=== PATIENT | female | born 1970 | race Two or more races ===

== ENCOUNTER 2025-01-04 17:49 | Inpatient (IN) | payer OTHER ==
[~2025-01-04] VITALS: Ht 151.1 cm; Wt 59.4 kg
[2025-01-04] MEDS: HYDROcodone-ACET 5/325MG TAB PO ONE (19:30)
--- NOTE | 2025-01-04 20:21 | DVH ---
CLINICAL INDICATION: left ankle pain TECHNIQUE: 3 radiographic views of the left ankle were obtained. Comparison: None FINDINGS/IMPRESSION: Bony structures are intact and normal alignment. There are no radiopaque foreign bodies.
--- NOTE | 2025-01-04 20:23 | DVH ---
CLINICAL INDICATION: left knee pain TECHNIQUE: 3 radiographic views of the left knee were obtained. Comparison: None FINDINGS/IMPRESSION: There is a displaced fracture of the left tibial plateau from the spinous processes to the medial jacob rface of the proximal left tibia. Probable joint effusion is present.
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
[2025-01-04 22:22] LABS: Hematocrit 29.9 % (36.0-46.0); Hemoglobin 9.0 g/dL (12.2-16.2); Mean Corpuscular Hemoglobin 18.8 pg (28.0-32.0); Mean Corpuscular Volume 62.7 fL (80.0-100.0); Nucleated Red Blood Cells % 0.0 %
[2025-01-04 22:34] LABS: Potassium 4.1 mmol/L (3.5-5.1); Sodium 140 mmol/L (136-145)
[2025-01-04 22:36] LABS: Anion Gap 7 (5-15); Calcium 8.9 mg/dL (8.7-10.4); Carbon Dioxide 23 mmol/L (20-31)
[2025-01-04 22:37] LABS: INR 0.96 (0.9-1.15); Partial Thromboplastin Time 20.3 SEC (24.5-34.5); Prothrombin Time 10.2 sec (9.3-11.8)
[2025-01-04 22:41] LABS: BUN/Creatinine Ratio 15.5 (10.0-20.0); Blood Urea Nitrogen 16 mg/dL (9-23)
[2025-01-04 22:51] LABS: Chloride 110 mmol/L (98-107); Glucose 218 mg/dL (74-106)
[2025-01-04 22:59] LABS: Anisocytosis Moderate
[2025-01-04] MEDS: ONDANSETRON ODT 4 MG TAB PO ONE (23:09)
[2025-01-04] MEDS: MORPHINE SULFATE INJ 2 MG/ml SYRG IV ONE (23:10)
--- NOTE | 2025-01-04 23:12 | DVH ---
CLINICAL HISTORY: PRE-OP TECHNIQUE: Single view of the chest was obtained. COMPARISON: XR CHEST 1 VIEW on DOS: 07/12/24, CT ANGIO CHEST on DOS: 09/20/22, XR CHEST 2 VIEWS on DOS: 09/20/22 FINDINGS: The heart size is mildly enlarged with pulmonary vascular congestion. No dense consolidation. IMPRESSION: Pulmonary vascular congestion
--- NOTE | 2025-01-04 23:22 | DVH ---
EXAM: CT CT L KNEE WO CONTRAST HISTORY: LEFT KNEE PAIN COMPARISON: XY L KNEE 3V XRAY on DOS: 01/04/25 TECHNIQUE: Noncontrast axial CT images of the left knee were performed. Sagittal and coronal reformat myra images were obtained. This CT exam was performed using one or more of the following dose reductio n techniques: Automated exposure control, adjustment of the mA and/or kv according to patient size, o r the use of iterative reconstruction techniques. Radiation Dose Information: CTDI volume is 7.75 mGy . Dose-length product is 3.87 mGy*cm FINDINGS: Comminuted acute displaced fractures through the lateral and medial aspect of the tibial plateau with intra-articular fracture fragment. There is involvement of the posterior tibial spine. There is a la rge knee joint lipohemarthrosis. There is subcutaneous stranding and swelling about the knee. IMPRESSION: 1. Comminuted acute displaced tibial plateau fracture.
[2025-01-05] VITALS (8 sets, daily range): BP systolic 147–202; BP diastolic 54–85; PULSE 59–91; RESP 16–20; TEMP 98.2–98.8; O2SAT 95–100
[2025-01-05] MEDS ORDERED: ENOXAPARIN SOD 40 MG/0.4 ML SYRINGE SC SCH
[2025-01-05] MEDS ORDERED: ACETAMINOPHEN 325 MG TAB PO PRN
[2025-01-05] MEDS ORDERED: ONDANSETRON HCL 4 MG/2 ML VIAL IV PRN
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
[2025-01-05] MEDS: HYDROcodone-ACET 10/325MG TAB PO ONE (01:15)
[2025-01-05 01:43] LABS: Alanine Aminotransferase 24.0 U/L (7-40); Albumin 3.6 g/dL (3.2-4.8); Alkaline Phosphatase 117.0 U/L (46-116); Bilirubin, Direct 0.3 mg/dL (<0.3); Bilirubin, Total 0.9 mg/dL (0.2-1.0); Total Protein 6.1 g/dL (5.7-8.2)
[2025-01-05 01:45] LABS: Iron 9.0 ug/dL (50-170)
[2025-01-05 01:48] LABS: Total Iron Binding Capacity 431.0 ug/dL (250-425)
[2025-01-05] MEDS: HYDROcodone-ACET 5/325MG TAB PO PRN (02:13)
[2025-01-05] MEDS ORDERED: LISI40TA16 PO (02:55)
[2025-01-05] MEDS: KETOROLAC TROMETH 30 MG/ML 1ML VIAL IV ONE (02:58)
[2025-01-05] MEDS: HYDROmorphone HCL 2 MG/ML VL/or syr IV ONE (03:30)
[2025-01-05] MEDS: FUROSEMIDE 40 MG/4 ML VIAL IV ONE (03:34)
[2025-01-05 03:57] LABS: Hematocrit 25.9 % (36.0-46.0); Hemoglobin 8.1 g/dL (12.2-16.2); Mean Corpuscular Hemoglobin 19.1 pg (28.0-32.0); Mean Corpuscular Volume 61.3 fL (80.0-100.0); Nucleated Red Blood Cells % 0.0 %
[2025-01-05 04:16] LABS: Alanine Aminotransferase 22 U/L (7-40); Albumin 3.8 g/dL (3.2-4.8); Anion Gap 9 (5-15); BUN/Creatinine Ratio 22.1 (10.0-20.0); Blood Urea Nitrogen 23 mg/dL (9-23); Carbon Dioxide 24 mmol/L (20-31); Chloride 107 mmol/L (98-107); Potassium 3.6 mmol/L (3.5-5.1); Sodium 140 mmol/L (136-145); Total Protein 6.2 g/dL (5.7-8.2)
[2025-01-05 04:17] LABS: Bilirubin, Total 0.9 mg/dL (0.2-1.0)
[2025-01-05 04:30] LABS: Alkaline Phosphatase 127 U/L (46-116); Calcium 8.6 mg/dL (8.7-10.4); Glucose 168 mg/dL (74-106)
[2025-01-05] MEDS: LISINOPRIL 20 MG TAB PO ONE ×2 (04:53→17:33)
[2025-01-05] MEDS: FUROSEMIDE 20 MG/2 ML VIAL IV SCH (05:10)
[2025-01-05] MEDS: hydrALAZINE HCL 20 MG/ML VL IV ONE (05:39)
[2025-01-05] MEDS: ACCU-CHEK COMFORT CURVE STRIP VI SCH ×2 (05:44→11:55)
[2025-01-05] MEDS: InsuLIN REG 1unit/0.01ml Soln (100units/ml) SC SCH ×2 (05:44→11:30)
[2025-01-05] MEDS: LISINOPRIL 20 MG TAB PO SCH (05:50)
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
[2025-01-05] MEDS: PANTOPRAZOLE 40 MG/10 ML VIAL INJ IV SCH (09:39)
[2025-01-05] MEDS: HYDROmorphone HCL 2 MG/ML VL/or syr IV PRN (09:40)
--- NOTE | 2025-01-05 09:50 | DVH ---
CLINICAL INDICATION: Right knee pain TECHNIQUE: XY R KNEE 3V XRAY Comparison: None FINDINGS/IMPRESSION: : There is a mildly displaced fracture of the proximal tibia with fracture lines involving the metaphys is and appears to extend into the lateral tibial plateau. This could be characterized by CT if clinic ally indicated. There is a lipohemarthrosis of the right knee joint.
[2025-01-05] MEDS ORDERED: DEXTROSE (50%) 50ML SYRG IV PRN ×2 (10:00)
[2025-01-05] MEDS ORDERED: LISINOPRIL 20 MG TAB PO SCH (10:00)
[2025-01-05 10:48] LABS: Triglycerides 104.0 mg/dL (< 150)
[2025-01-05 10:50] LABS: Cholesterol 126.0 mg/dL (< 200)
[2025-01-05 11:15] LABS: HDL Cholesterol 73.0 mg/dL (40-59)
[2025-01-05] MEDS: IRON SUCROSE COMPLEX 110 ML IV SCH (11:55)
[2025-01-05] MEDS: hydrALAZINE HCL 20 MG/ML VL IV PRN (13:03)
[2025-01-05 13:37] LABS: Lipase 36.0 U/L (12-53)
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
[2025-01-05 18:27] LABS: Cannabinoid Screen, Urine Neg (NEGATIVE)
[2025-01-05 18:35] LABS: Amphetamine Screen, Urine Pos (NEGATIVE); Barbiturate Scree,Urine Neg (NEGATIVE); Benzodiazephine Screen, Urine Neg (NEGATIVE); Cocaine Screen, Urine Neg (NEGATIVE); Opiate Scree,Urine Pos (NEGATIVE); Phencyclidine Screen, Urine Neg (NEGATIVE)
[2025-01-05 18:38] LABS: Urine Protein, UAD Negative (Negative)
[2025-01-06] VITALS (8 sets, daily range): BP systolic 106–189; BP diastolic 57–98; PULSE 78–98; RESP 16–20; TEMP 97.6–99.3; O2SAT 76–99
--- NOTE | 2025-01-06 07:03 | ECG ---
[facility] Test Date: 2025-01-05 Test Time: 15:19:17 Pat Name: YOAN KING Department: Room: 0270T Gender: F Senior Engineering Associate: : 1970 Requested By: GENARO CASTRO Order Number: [id number] Reading MD: Alex Anderson Measurements Intervals [place] Rate: 77 P: 60 DE: 146 QRS: -33 QRSD: 92 T: 125 QT: 422 QTc: 477 Interpretive Statements Normal sinus rhythm Possible Left atrial enlargement Left axis deviation Left ventricular hypertrophy with repolarization abnormality Electronically Signed On 01-10-2025 15:26:30 PDT by Alex Anderson Please click the below link to view image of tracing.
[2025-01-06 08:02] LABS: Chloride 104 mmol/L (98-107); Sodium 139 mmol/L (136-145)
[2025-01-06 08:03] LABS: Anion Gap 9 (5-15); Carbon Dioxide 26 mmol/L (20-31); Hemoglobin 8.6 g/dL (12.2-16.2); Nucleated Red Blood Cells % 0.1 %
[2025-01-06 08:07] LABS: Hematocrit 27.8 % (36.0-46.0); Mean Corpuscular Hemoglobin 19.2 pg (28.0-32.0); Mean Corpuscular Volume 62.1 fL (80.0-100.0)
[2025-01-06 08:08] LABS: BUN/Creatinine Ratio 19.1 (10.0-20.0); Blood Urea Nitrogen 18 mg/dL (9-23); Glucose 94 mg/dL (74-106)
[2025-01-06 08:10] LABS: Calcium 8.5 mg/dL (8.7-10.4); Potassium 3.4 mmol/L (3.5-5.1)
[2025-01-06] MEDS ORDERED: POTASSIUM CHL 20MEQ/100ML 100 ML IV ONE (09:30)
[2025-01-06] MEDS: EMPAGLIFLOZIN 10 MG TAB PO SCH (10:49)
[2025-01-06] MEDS: POTASSIUM CHL 20 Meq TABLET PO ONE (11:01)
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
[2025-01-06] MEDS ORDERED: IRON SUCROSE COMPLEX 110 ML IV SCH (12:00)
--- NOTE | 2025-01-06 14:14 | DVH ---
CLINICAL INDICATION: pain TECHNIQUE: 2 radiographic views of the right knee were obtained. Comparison: XY R KNEE 3V XRAY on DOS: 01/05/25, CT CT L KNEE WO CONTRAST on DOS: 01/04/25, XY L KNEE 3V XRAY on DOS: 01/04/25 FINDINGS/IMPRESSION: There is no evidence of acute fracture or dislocation. The visualized joint space is well maintained. The alignment is anatomical. There is no radiopaque foreign body.
[2025-01-07] VITALS (7 sets, daily range): BP systolic 148–193; BP diastolic 69–97; PULSE 80–93; RESP 16–20; TEMP 97.5–99.1; O2SAT 93–99
[2025-01-07] MEDS: POTASSIUM CHLORIDE 20 MEQ, LIDOCAINE 1% (LOCAL ANESTH.) 2 ML in SODIUM CHL 0.9% 100 ML IV ONE (00:27)
[2025-01-07] MEDS: hydrALAZINE HCL 20 MG/ML VL IV ONE (02:17)
--- NOTE | 2025-01-07 10:03 | DVHPN2 ---
Consult Progress Note Date Seen: Jan 07, 2025 Subjective Review of Systems: CVS:Normal, RESPIRATORY:Normal, NEURO:Normal Objective vital signs Vital Sign Date Time Temp Pulse Resp B/P (MAP) Pulse Ox O2 Delivery O2 Flow Rate FiO2 01/07/25 06:47 66 20 196/78 01/07/25 05:00 99.0 95 99.0 01/06/25 20:00 Room Air* 0 21 Total Intake and Output 01/06/25 01/06/25 01/07/25 15:00 23:00 07:00 Intake Total 800 ml 1125 ml Balance 800 ml 1125 ml medications Current Medications Medications Dose Ordered Sig/Donovan Route Start Time Stop Time Status Last Admin Dose Admin Acetaminophen/ Hydrocodone Bitart 1 tab Q4HP PRN PO 01/05/25 00:00 01/07/25 02:30 1 TAB Ondansetron HCl 4 mg Q4HP PRN IV 01/05/25 00:00 Acetaminophen 650 mg Q6HP PRN PO 01/05/25 00:00 Hydromorphone HCl 0.25 mg Q4HPRN PRN IV 01/05/25 00:00 01/07/25 06:17 0.25 MG Furosemide 20 mg BIDD IV 01/05/25 06:00 01/07/25 05:56 20 MG Iron Sucrose 110 ml @ 110 mls/hr DAILY@1200 IV 01/05/25 12:00 01/09/25 12:59 01/06/25 12:53 110 MLS/HR Pantoprazole Sodium 40 mg DAILY IV 01/05/25 10:00 01/06/25 10:49 40 MG Lisinopril 40 mg DAILY PO 01/05/25 05:30 01/06/25 10:49 40 MG Hydralazine HCl 10 mg Q6HP PRN IV 01/05/25 05:30 01/06/25 21:35 10 MG Diagnostic Test (Pha) 1 strip ACHS 01/05/25 11:30 01/07/25 07:07 1 STRIP Insulin Human Regular ACHS SC 01/05/25 11:30 01/07/25 06:32 4 UNITS Dextrose 50 ml UD PRN IV 01/05/25 10:00 Iron Sucrose 110 ml @ 110 mls/hr DAILY@1200 IV 01/06/25 12:00 01/10/25 12:59 UNV Empaglifozin 10 mg DAILY PO 01/06/25 10:00 01/06/25 10:49 10 MG Chlorthalidone 25 mg DAILY@BREAKFAST PO 01/08/25 08:00 Examination: LUNGS:Normal, CVS:Normal, NEURO:Normal laboratory and microbiology Laboratory Tests 01/06/25 12:03 01/06/25 06:08 Test 01/06/25 06:08 Range/Units Serum Glucose 94 74-106 mg/dL Problem List/Assessment/Plan Problem List/Assessment/Plan Preprocedural cardiovascular examination Acute comminuted displaced tibial plateau fracture De Nathanael decompensated HFpEF, NYHA Class II Lmr-diqujqu-fcmyzlsez diabetes mellitus Hypertensive urgency Iron deficiency anemia Methamphetamine/cannabinoid/alcohol/tobacco dependence Plan/Recommendation (Dr. Anderson) Revised cardiac risk index (Trae criteria): Class I at 1.1% risk of , NE or cardiac arrest. Patient has no underlying history of coronary artery disease and has an optimal functional capacity. Per Cardiology standpoint, the patient is at an acceptable-risk for moderate-risk surgery. Preliminary transthoracic echocardiogram revealed an optimal LV function (dictated report pending at this time). Consider initiation of beta-sheridan post surgical intervention. In the meantime, continue aggressive blood pressure control with other agents. There is no further cardiac work-up indicated at this time. Signing off at this time. Thank you for allowing us to care for this patient. This medical document was created using an electronic medical record system with voice recognition software and computerized dictation system. Although this document has been carefully reviewed, there might still be some phonetic and typographical errors. Occasional wrong-word or ``sound-alike substitutions may have occurred due to the inherent limitations of voice recognition software. These areas are purely typographical due to imperfections of the software programs and do not reflect any compromise in the patient's medical care. Please read the chart carefully and recognize, using context, where these substitutions have occurred. Plan discussed with: Patient, Other Date of Service: Jan 07, 2025 Billing Provider: ANDREW DIEGO Cardiology Common Codes: [id number] INP/OBS CARE(Mod) ANDREW DIEGO Jan 07, 2025 10:03
[2025-01-07] MEDS: CHLORTHALIDONE 25 MG TAB PO ONE (10:36)
--- NOTE | 2025-01-07 10:41 | DVHSR ---
APPROVED REPORT EXAM: Two-dimensional and M-mode echocardiogram with Doppler and color Doppler. Blood Pressure: 189/86 mmHg INDICATION Cardiomegaly RISK FACTORS Height: 4'11", Weight: 130 DIMENSIONS LVDd4.8 (3.8-5.7cm)LA (2D)4.9 (1.9-4.0cm)Aortic Root2.9 (2.0-3.7cm) LVDs3.0 (2.5-4.0cm)LA (MM) (1.9-4.0cm)Aortic Cusp Exc1.7 (1.5-2.0cm) EF (%) 67.0 (55-70%)Rt. Atrium3.2 (1.9-4.0cm)Asc. Aorta cm IVSd1.8 (0.7-1.1cm)RV (D)3.5 (1.8-2.4cm) PWd1.4 (0.7-1.1cm) Mitral Valve MitralMitral Stenosis E wave0.89m/sMV Mean GR.mmHg A wave1.30m/sMV Peak GR.mmHg E/A ratio0.72D MVAcm2 DECEL [id number] 1/2 Timems Aortic Valve Aortic ValveAortic Stenosis V11.48m/Ricardo Mean GR.10mmHg V22.01m/Ricardo Peak GR.16mmHg LVOT Diameter1.9 (1.8-2.4cm)Doppler AVA2.09cm2 Pulmonic Valve V21.48m/s Other Information Quality : Technically LimitedRhythm : Technically limited study due to body habitus. Conclusion Sinus rhythm. Concentric LVH with left atrial enlargement. Mild mitral annular calcification. The aortic tricuspid and pulmonic or structurally normal. Left ventricular function is preserved at 55-60% with normal RV function. Dopplers unremarkable. No pericardial effusion masses or vegetations.
[2025-01-07 11:23] LABS: Chloride 104 mmol/L (98-107); Sodium 139 mmol/L (136-145)
[2025-01-07 11:24] LABS: Anion Gap 7 (5-15); Calcium 8.8 mg/dL (8.7-10.4); Carbon Dioxide 28 mmol/L (20-31)
[2025-01-07 11:25] LABS: Potassium 3.1 mmol/L (3.5-5.1)
[2025-01-07 11:29] LABS: BUN/Creatinine Ratio 13.6 (10.0-20.0); Blood Urea Nitrogen 14 mg/dL (9-23); Glucose 90 mg/dL (74-106)
[2025-01-07 11:30] LABS: Magnesium 2.0 mg/dL (1.6-2.6)
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
[2025-01-07] MEDS: POTASSIUM EFFERVESENT TAB 25 MEQ PO ONE (14:43)
[2025-01-08 01:00] VITALS: BP 140/72; PULSE 89; RESP 16; TEMP 97.4; O2SAT 93
[2025-01-08 05:00] VITALS: BP 138/69; PULSE 84; RESP 16; TEMP 97.5; O2SAT 93
[2025-01-08 08:31] VITALS: BP 149/62; PULSE 82; RESP 18; TEMP 98.8; O2SAT 93
[2025-01-08] MEDS: CHLORTHALIDONE 25 MG TAB PO SCH (09:34)
[2025-01-08 10:50] VITALS: BP 149/62; PULSE 82; RESP 18; TEMP 98.8; O2SAT 93
[2025-01-08 13:00] VITALS: BP 166/83; PULSE 79; RESP 20; TEMP 98.4; O2SAT 97
[2025-01-08 14:40] VITALS: BP 166/83; PULSE 79; RESP 20
[2025-01-08 16:18] LABS: Potassium 3.9 mmol/L (3.5-5.1)
[2025-01-08 16:19] LABS: Anion Gap 9 (5-15); Carbon Dioxide 28 mmol/L (20-31)
[2025-01-08 16:20] LABS: Calcium 8.9 mg/dL (8.7-10.4); Chloride 95 mmol/L (98-107); Sodium 132 mmol/L (136-145)
[2025-01-08 16:25] LABS: BUN/Creatinine Ratio 10.2 (10.0-20.0); Blood Urea Nitrogen 14 mg/dL (9-23)
[2025-01-08 16:26] LABS: Glucose 106 mg/dL (74-106)
== END 2025-01-08 16:17 | disposition short-term general hospital (02) | DRG 562 ==
LOC: ER 17:51 → OVERFLOW 23:58 → TELE-WESTW 01-05 → WEST WING 01-05 18:44 → TELE-WESTW 01-07 00:07
PROVIDERS: ADMIT Internal Medicine Geriatric Medicine; ATTEND Internal Medicine Geriatric Medicine
DX: S82.142A Displaced bicondylar fracture of left tibia, initial encounter for closed fracture (principal); I50.31 Acute diastolic (congestive) heart failure; K92.1 Melena; I16.0 Hypertensive urgency; D50.9 Iron deficiency anemia, unspecified; E11.9 Type 2 diabetes mellitus without complications; F17.210 Nicotine dependence, cigarettes, uncomplicated; I10 Essential (primary) hypertension; S93.402A Sprain of unspecified ligament of left ankle, initial encounter; W19.XXXA Unspecified fall, initial encounter; I11.0 Hypertensive heart disease with heart failure; F19.10 Other psychoactive substance abuse, uncomplicated; F15.90 Other stimulant use, unspecified, uncomplicated; Z79.84 Long term (current) use of oral hypoglycemic drugs; Z90.710 Acquired absence of both cervix and uterus; Z98.0 Intestinal bypass and anastomosis status; Y93.89 Activity, other specified; Y92.89 Other specified places as the place of occurrence of the external cause; Y99.8 Other external cause status
CPT/HCPCS: 29505; 36415; 71045; 73560; 73562; 73610; 73700; 80048; 80053; 80061; 80076; 80307; 80320; 81001; 82306; 82607; 82728; 82746; 82962; 83036; 83540; 83550; 83690; 83735; 83880; 84132; 84443; 84484; 85025; 85610; 85730; 86141; 86850; 86900; 86901; 93005; 93306; G0378; J1756; J1815; J1885; J2003; J2470; Q0162

== ENCOUNTER 2025-02-12 12:38 | Emergency (ER) | payer OTHER ==
[~2025-02-12] VITALS: Ht 149.9 cm; Wt 58.1 kg
[~2025-02-12 12:38] MED LIST: LISI40TA16 PO
--- NOTE | 2025-02-12 15:09 | ED.PDOC ---
Musculoskeletal HPI Comments This is a 54 year-old female who presents to the ED via EMS with a chief complaint of L lower extremity pain and swelling for X2 days. Patient reports fracturing her knee and having open reduction internal fixation surgery done, X7 screws in place with a plate. Patient reports some drainage from the surgical site with pain. Patient has no further complaints or modifying factors at this time. Chief Complaint: Lower Extremity Time Seen by MD: 14:25 Primary Care Provider: UNKNOWN Reviewed Notes: Medications, Allergies Allergies: Coded Allergies: NO KNOWN ALLERGIES (Unverified , 01/04/25) Home Meds Reported Medications Lisinopril (Lisinopril) 40 Mg Tab, 40 MG PO, TAB 01/05/25 Information Source: Patient Mode of Arrival: Wheelchair Location: Left Extremity Location: Leg Severity: Moderate Pain: Moderate Onset of Symptoms: After Trauma Associated signs and symptoms: Leg pain Past Medical History PAST MEDICAL HISTORY: DM, HTN Surgical History: Appendectomy, Cholecystectomy, Hysterectomy PHYSICIAN PRACTICE CONSULTANT History: No Pertinent PHYSICIAN PRACTICE CONSULTANT History Family History Family History: Unknown Social History Smoker: Cigarettes, Less Than 1 Pack/Day Alcohol: Denies ETOH Use Drugs: Marijuana Lives In: Home Constitutional: denies: chills, diaphoresis, fatigue, fever, malaise, sweats, weakness, others EENTM: denies: blurred vision, double vision, ear bleeding, ear discharge, ear drainage, ear pain, ear ringing, eye pain, eye redness, hearing loss, mouth pain, mouth swelling, nasal discharge, nose bleeding, nose congestion, nose pain, photophobia, tearing, throat pain, throat swelling, voice changes, others Respiratory: denies: cough, hemoptysis, orthopnea, SOB at rest, shortness of breath, SOB with excertion, stridor, wheezing, others Cardiovascular: denies: chest pain, dizzy spells, diaphoresis, Dyspnea on exertion, edema, irregular heart beat, left arm pain, lightheadedness, palpitations, PND, syncope, others Gastrointestinal: denies: abdomen distended, abdominal pain, blood streaked bowels, constipated, diarrhea, dysphagia, difficulty swallowing, hematemesis, melena, nausea, poor appetite, poor fluid intake, rectal bleeding, rectal pain, vomiting, others Genitourinary: denies: abnormal vagina bleeding, burning, dyspareunia, dysuria, flank pain, frequency, hematuria, incontinence, pain, , vagina discharge, urgency, others Neurological: denies: dizziness, fainting, headache, left sided numbness, left sided weakness, numbness, paresthesia, pre-existing deficit, right sided numbness, right sided weakness, seizure, speech problems, tingling, tremors, weakness, others Musculoskeletal: reports: joint pain, joint swelling; denies: back pain, gout, muscle pain, muscle stiffness, neck pain, others Integumetry: denies: bruises, change in color, change in hair/nails, dryness, laceration, lesions, lumps, rash, wounds, others Allergic/Immunocompromised: denies: Difficulty Healing, Frequent Infections, Hives, Itching, others Hematologic/Lymphatic: denies: anemia, blood clots, easy bleeding, easy bruising, swollen glands, others Endocrine: denies: excessive hunger, excessive sweating, excessive thirst, excessive urination, flushing, intolerance to cold, intolerance to heat, unexplained weight gain, unexplained weight loss, others Psychiatric: denies: anxiety, bipolar disorder, depression, hopeless, panic disorder, schizophrenia, sleepless, suicidal, others All Other Systems: Reviewed and Negative Physical Exam General Appearance: Moderate Distress HEENT: Normal ENT Inspection, Pharynx Normal, TMs Normal Neck: Full Range of Motion, Non-Tender, Normal, Normal Inspection Respiratory: Chest Non-Tender, Lungs Clear, No Accessory Muscle Use, No Respiratory Distress, Normal Breath Sounds Cardiovascular: No Edema, No JVD, No Murmur, No Gallop, Normal Peripheral Pulses, Regular Rate/Rhythm Breast Exam: Deferred Gastrointestinal: No Organomegaly, Non Tender, No Pulsatile Mass, Normal Bowel Sounds, Soft Genitalia: Deferred Pelvic: Deferred Rectal: Deferred Extremities: Swelling (Right lower extremity) Musculoskeletal : Apperance: Normal Neurologic: Alert, No Motor Deficits, No Sensory Deficits Cerebellar Function: NOT DONE Reflexes: NOT DONE Skin: Normal Color Peripheral Pulses: 3+ Radial (R), 3+ Radial (L) Lymphatic: No Adenopathy Was a procedure done? Was a procedure done?: No Differential Diagnosis EXT Differential Diagnosis: Fracture, Sprain, Laceration X-Ray, Labs, Meds, VS Vital Signs Date Time Temp Pulse Resp B/P (MAP) Pulse Ox O2 Delivery O2 Flow Rate FiO2 02/12/25 15:32 208/94 02/12/25 15:23 98.2 89 18 219/94 (135) 96 98.2 208/94 (132) 02/12/25 12:40 97.6 94 16 195/90 98 97.6 Current Medications Medications (Trade) Dose Ordered Sig/Donovan Route Start Time Stop Time Status Last Admin Acetaminophen/ Hydrocodone Bitart (Raymond 10/325MG Tab) 1 tab ONCE ONCE PO 02/12/25 15:15 02/12/25 15:16 DC 02/12/25 15:31 Clindamycin HCl (Cleocin Capsule) 150 mg ONCE ONCE PO 02/12/25 15:15 02/12/25 15:16 DC 02/12/25 15:31 Amlodipine Besylate (Norvasc Tablet) 10 mg ONCE ONCE PO 02/12/25 15:30 02/12/25 15:31 DC 02/12/25 15:32 Patient alert. Had surgery in the left lower extremity. Vitals stable. Answering questions. Blood pressure elevated. Was given Norvasc. Was given clindamycin. Was given pain medication. Explained to the patient. Continue monitoring. Time of 1ST Reevaluation: 15:44 Reevaluation 1ST: Unchanged Patient Education/Counseling: Diagnosis, Treatment Family Education/Counseling: Diagnosis, Treatment Departure 1 Departure Time of Disposition: 18:17 Impression: Primary Impression: Cellulitis Qualified Codes: L03.116 - Cellulitis of left lower limb Disposition: ADMITTED INPATIENT Admit to: Med Surg Condition: Guarded Critical Care Note Critical Care Time?: No Stability Stability form required: No Heart Score Heart Score: Heart Score Response (Comments) Value History N/A 0 EKG N/A 0 Age N/A 0 Risk Factors N/A 0 Troponin N/A 0 Total 0 I personally scribed for CATARINA FRIEDMAN MD ([email or web address]) on 02/12/25 at 15:09. Electronically submitted by Ingrid Vega ([email or web address]). CATARINA FRIEDMAN MD Feb 12, 2025 15:09
[2025-02-12 15:23] VITALS: BP 208/94; PULSE 89; RESP 18; TEMP 98.2; O2SAT 96
[2025-02-12] MEDS: HYDROcodone-ACET 10/325MG TAB PO ONE (15:31)
[2025-02-12] MEDS: CLINDAMYCIN HCL 150 MG CAP PO ONE (15:31)
== END 2025-02-12 15:41 | disposition left against medical advice (07) ==
LOC: ER 12:38
DX: L03.116 Cellulitis of left lower limb (principal); E11.9 Type 2 diabetes mellitus without complications; I10 Essential (primary) hypertension; F17.210 Nicotine dependence, cigarettes, uncomplicated; Z90.49 Acquired absence of other specified parts of digestive tract; Z90.710 Acquired absence of both cervix and uterus